=== PATIENT | female | born 1930 | race Caucasian/White ===

== ENCOUNTER 2017-07-12 10:35 | Emergency (ER) | payer MEDICARE, BC ==
--- NOTE | 2017-07-12 11:42 | EDM.PDOC ---
ED HPI GENERAL MEDICAL PROBLEM - General Chief Complaint: Drug or Alcohol Abuse Stated Complaint: WAS FOUND ON FLOOR Time Seen by Provider: 07/12/17 11:36 Source of Information: Reports: Patient, Family - History of Present Illness INITIAL COMMENTS - FREE TEXT/NARRATIVE: Pt found on the floor this morning by her son at 0730. Unsure how long she was there. Has been declining this week since Saturday. Seems to have taken too many meds. Son has been caring for her at home. Usually checks on her daily about 3 times a day. She is now needing assistance walking. Had been using a walker but now not ambulating independently. Family had hired a helper to come help with bathing. Son sets up her meds. She has had changing memory issues and steady decline. Has been able to dress self until this week. Was seen by primary care on Saturday and started on Morphine. Son thinks she took 2 Ativan last night. Pt aware of where she is and who brought her in. Thinks the year is 2015. Not sure what town we are in. Onset: Today Onset Date: 07/12/17 Onset Time: 07:30 Duration: Hour(s): Improves with: Reports: None Worsens with: Reports: None Context: Reports: Other Associated Symptoms: Reports: Confusion Treatments [employer]: Reports: Acetaminophen denies Pain Score (Numeric/FACES): 0 - Related Data Allergies Allergy/AdvReac Type Severity Reaction Status Date / Time No Known Allergies Allergy Verified 07/12/17 11:06 Home Meds: Home Meds Citalopram [Citalopram HBr] 10 mg PO DAILY 06/27/14 [History] LORazepam [Ativan] 0.5 mg PO BID PRN 06/27/14 [History] Cyanocobalamin (Vitamin B-12) [Vitamin B-12] 2 tab PO BID 06/30/14 [History] Hydrocodone/Acetaminophen [[place] 10-325] 5.325 mg PO BID PRN 06/30/14 [History] sulfaSALAzine 1 tab PO BID 06/30/14 [History] Acetaminophen [Tylenol Extra Strength] 500 mg PO Q12H PRN 07/12/17 [History] Past Medical History HEENT History: Reports: Impaired Vision Cardiovascular History: Reports: Arrhythmia Gastrointestinal History: Reports: Other (See Below) Other Gastrointestinal History: chrons diaease Genitourinary History: Reports: Urinary Incontinence 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: Musculoskeletal History: Reports: Back Pain, Chronic, Osteoarthritis Psychiatric History: Reports: Dementia, Depression - Infectious Disease History Infectious Disease History: Reports: Chicken Pox, Shingles - Past Surgical History HEENT Surgical History: Reports: Cataract Surgery Social & Family History - Tobacco Use Smoking Status *Q: Never Smoker Second Hand Smoke Exposure: No - Caffeine Use Caffeine Use: Reports: Coffee - Recreational Drug Use Recreational Drug Use: No ED ROS GENERAL - Review of Systems Review Of Systems: See Below Constitutional: Reports: Weakness HEENT: Reports: No Symptoms, Other (glasses) Respiratory: Reports: No Symptoms Cardiovascular: Reports: No Symptoms Endocrine: Reports: No Symptoms GI/Abdominal: Reports: No Symptoms, Constipation (chronic) : Reports: No Symptoms Musculoskeletal: Reports: No Symptoms, Other (generalized weakness) Skin: Reports: No Symptoms Neurological: Reports: Confusion, Gait Disturbance Psychiatric: Reports: No Symptoms Hematologic/Lymphatic: Reports: No Symptoms Immunologic: Reports: No Symptoms - Physical Exam Exam: See Below Exam Limited By: Other (Son present) General Appearance: Alert, WD/WN, No Apparent Distress, Other (oriented to place and date) Ears: Normal External Exam, Normal Canal, Hearing Grossly Normal, Normal TMs Nose: Normal Inspection, Normal Mucosa, No Blood Throat/Mouth: Normal Inspection, Normal Lips, Normal Teeth, Normal Gums, Normal Oropharynx, Normal Voice, No Airway Compromise Head Exam: Atraumatic, Normocephalic Neck: Normal Inspection, Supple, Non-Tender, Full Range of Motion Respiratory/Chest: No Respiratory Distress, Lungs Clear, Normal Breath Sounds, No Accessory Muscle Use, Chest Non-Tender Cardiovascular: Normal Peripheral Pulses, Regular Rate, Rhythm, No Edema, No Gallop, No JVD, No Murmur, No Rub GI/Abdominal: Normal Bowel Sounds, Soft, Non-Tender, No Organomegaly, No Distention, No Abnormal Bruit, No Mass Neuro Exam (Abbreviated): Alert, Oriented, CN II-XII Intact, Normal Cognition, Normal Gait, Normal Reflexes, No Motor/Sensory Deficits, Other (symmetrical strength and movements) Back Exam: Normal Inspection, Full Range of Motion, NT Extremities: Normal Inspection, Normal Range of Motion, Non-Tender, No Pedal Edema, Normal Capillary Refill Psychiatric: Normal Affect, Normal Mood, Other (thinks it is 2016, pleasant and responds appropriately to questions. Forgets what she had for breakfast. Does not recall falling.) Course - Vital Signs Last Recorded V/S: Last Vital Signs Temp 98.4 F 07/12/17 11:23 Pulse 84 07/12/17 11:23 Resp 16 07/12/17 11:23 BP 126/66 07/12/17 11:23 Pulse Ox 91 L 07/12/17 11:23 - Orders/Labs/Meds Orders: Active Orders 24 hr Category Date Time Status Consult to Case Management [CONS] Routine Cons 07/12/17 12:15 Active UA W/O MICROSCOPIC [URIN] Stat Lab 07/12/17 11:59 Uncollected Labs: Laboratory Tests 07/12/17 07/12/17 Range/Units 12:11 12:11 WBC 10.5 (4.5-11.0) K/uL RBC 4.29 (3.30-5.50) M/uL Hgb 13.1 (12.0-15.0) g/dL Hct 39.8 (36.0-48.0) % MCV 93 (80-98) fL MCH 31 (27-31) pg MCHC 33 (32-36) % Plt Count 197 (150-400) K/uL Neut % (Auto) 78 H (36-66) % Lymph % (Auto) 11 L (24-44) % Orange % (Auto) 11 H (2-6) % Eos % (Auto) 0 L (2-4) % Baso % (Auto) 0 (0-1) % Sodium 141 (140-148) mmol/L Potassium 3.3 L (3.6-5.2) mmol/L Chloride 106 (100-108) mmol/L Carbon Dioxide 30 (21-32) mmol/L Anion Gap 8.3 (5.0-14.0) mmol/L BUN 25 H (7-18) mg/dL Creatinine 0.8 (0.6-1.0) mg/dL Est Cr Clr Drug Dosing 41.05 mL/min Estimated GFR (MDRD) > 60 (>60) Glucose 114 H (74-106) mg/dL Calcium 8.7 (8.5-10.1) mg/dL Total Bilirubin 0.3 (0.2-1.0) mg/dL AST 32 (15-37) U/L ALT 17 (12-78) U/L Alkaline Phosphatase 113 (46-116) U/L Total Protein 6.7 (6.4-8.2) g/dL Albumin 3.3 L (3.4-5.0) g/dL Globulin 3.4 (2.3-3.5) g/dL Albumin/Globulin Ratio 1.0 L (1.2-2.2) TSH, Ultra Sensitive 0.867 (0.358-3.740) uIU/mL Departure - Departure Time of Disposition: 14:23 Disposition: Home, Self-Care 01 Clinical Impression: Hypokalemia Medication reaction Qualifiers: Encounter type: initial encounter Qualified Code(s): T88.7XXA - Unspecified adverse effect of drug or medicament, initial encounter Dementia Qualifiers: Dementia type: unspecified type Dementia behavioral disturbance: without behavioral disturbance Qualified Code(s): F03.90 - Unspecified dementia without behavioral disturbance - Discharge Information Referrals: Griffin Madison MD [Primary Care Provider] - Forms: ED Department Discharge Additional Instructions: Labs WNL. Mild hypokalemia noted. Discussed findings with pt's family. No criteria for admission met at this time. Discussed need for local intermodal truck driver placement. Discharge planning comes for a consult. No beds in town available at this time. Family may seek out Home Health consult for the weekend until local intermodal truck driver placement found but declines at this time. Son will need to administer all meds. Pt to hold all narcotic at this time. May use Tylenol as needed for pain. Fall risk reviewed. Pt does have [employer] in place at home. Pt will be discharged to son's home for 24 hour care. They do have a caregiver that helps them. They understand the risk at this time. Will be seeking out jail care on Saturday. They did place several calls today to multiple facilities. Pt ate a full tray for lunch. Denies pain. Seems more alert and oriented as she is here in the ER. Required assistance of 2 to go the bathroom. - Problem List & Annotations (1) Degeneration of lumbar intervertebral disc SNOMED Code(s): 33138004 Code(s): M51.36 - OTHER INTERVERTEBRAL DISC DEGENERATION, LUMBAR REGION Status: Acute Priority: Low Current Visit: No (2) Medication reaction SNOMED Code(s): 63399442 Code(s): T88.7XXA - UNSP ADVERSE EFFECT OF DRUG OR MEDICAMENT, INIT ENCNTR Status: Acute Priority: Medium Current Visit: Yes Qualifiers: Encounter type: initial encounter Qualified Code(s): T88.7XXA - Unspecified adverse effect of drug or medicament, initial encounter (3) Dementia SNOMED Code(s): 55920655 Code(s): F03.90 - UNSPECIFIED DEMENTIA WITHOUT BEHAVIORAL DISTURBANCE Status: Acute Priority: Medium Current Visit: Yes Qualifiers: Dementia type: unspecified type Dementia behavioral disturbance: without behavioral disturbance Qualified Code(s): F03.90 - Unspecified dementia without behavioral disturbance (4) Hypokalemia SNOMED Code(s): 77032058 Code(s): E87.6 - HYPOKALEMIA Status: Acute Priority: Low Current Visit : Yes - Problem List Review Problem List Initiated/Reviewed/Updated: Yes - My Orders Last 24 Hours: My Active Orders 07/12/17 11:59 UA W/O MICROSCOPIC [URIN] Stat 07/12/17 12:15 Consult to Case Management [CONS] Routine - Assessment/Plan Last 24 Hours: My Active Orders 07/12/17 11:59 UA W/O MICROSCOPIC [URIN] Stat 07/12/17 12:15 Consult to Case Management [CONS] Routine
[2017-07-12 15:01] VITALS: BP 127/81
== END 2017-07-12 14:40 | disposition home or self-care (01) ==
LOC: JP.ED 10:35
DX: F03.90 Unspecified dementia, unspecified severity, without behavioral disturbance, psychotic disturbance, mood disturbance, and anxiety (principal); T88.7XXA Unspecified adverse effect of drug or medicament, initial encounter; E87.6 Hypokalemia; F32.9 Major depressive disorder, single episode, unspecified; M19.90 Unspecified osteoarthritis, unspecified site; Z98.49 Cataract extraction status, unspecified eye; Z79.899 Other long term (current) drug therapy
CPT/HCPCS: 36415; 80053; 81003; 84443; 85025; 99284